=== PATIENT | male | born 1965 | race African-American/Black ===

== ENCOUNTER 2025-07-26 15:09 | Inpatient (IN) | payer OTHER ==
[~2025-07-26] VITALS: Ht 185.4 cm; Wt 94.6 kg
[2025-07-26 15:40] VITALS: BP 141/70
[2025-07-26] MEDS ORDERED: VISTARIL25 MG PO (15:46)
[2025-07-26] MEDS ORDERED: 'KLONOPIN0.5 MG PO (16:19)
[2025-07-26] MEDS ORDERED: NICODERM CQ1 EACH T (16:20)
[2025-07-26] MEDS ORDERED: OXYBUTYNIN5 MG PO (16:21)
[2025-07-26] MEDS ORDERED: OSTERA TABLET1 EACH PO (16:21)
[2025-07-26] MEDS ORDERED: COLACE100 MG PO (16:22)
[2025-07-26 16:24] LABS: BASO # 0.0 10*3/uL (0.0-0.1); BASO % 0.5 % (0.0-1.0); EOS # 0.2 10*3/uL (0.0-0.4); EOS % 3.0 % (1.0-4.0); MEAN CELL VOLUME 88.5 fl (80.0-94.0); MEAN CORPUSCULAR HGB 27.7 pg (27.0-31.0); MEAN PLATELET VOLUME 8.7 fl (9.6-12.3); MONO # 0.7 10*3/uL (0.1-1.0); MONO % 12.0 % (3.0-9.0); NEUT # 2.9 10*3/uL (2.3-7.9); NEUT % 47.9 % (47.0-73.0); NUCLEATED RED BLOOD CELL 0.0 % (0.0-0.0); NUCLEATED RED BLOOD CELL 0.0 10*3/uL (0.0-0.0); PLATELET COUNT AUTOMATED 432 10*3/uL (130-400); RED CELL DISTRI WIDTH 14.3 % (0-14.5)
[2025-07-26] MEDS ORDERED: NORVASC5 MG PO (16:38)
[2025-07-26] MEDS ORDERED: CARBAMAZEPINE200 M2 PO (16:38)
[2025-07-26] MEDS ORDERED: LINZESS290 MC1 PO (16:39)
[2025-07-26] MEDS ORDERED: MIRTAZAPINE15 M2 PO (16:39)
[2025-07-26] MEDS ORDERED: BUPROPION XL300 MG PO (16:41)
[2025-07-26 16:45] LABS: BUN 12 mg/dl (9-23)
[2025-07-26] MEDS ORDERED: MG-AL HYDROXIDE/SIMETICONE 30 ML UDC PO PRN (20:00)
[2025-07-26] MEDS ORDERED: ACETAMINOPHEN 325 MG TAB PO PRN (20:00)
[2025-07-26] MEDS ORDERED: Menthol/Zinc Oxide 4 GM THIN T PRN (20:15)
[2025-07-26] MEDS ORDERED: Ondansetron4 MG PO (20:21)
[2025-07-26] MEDS ORDERED: LORazepam 1 MG TAB PO PRN (20:30)
[2025-07-26] MEDS ORDERED: hydrOXYzine hydrochloride 50 MG/ML VIAL IM PRN (20:30)
[2025-07-26 20:57] VITALS: BP 146/75
[2025-07-27] MEDS ORDERED: Ondansetron Hydrochloride 4 MG TAB PO PRN (00:10)
[2025-07-27 06:47] LABS: BASO # 0.1 10*3/uL (0.0-0.1); BASO % 0.8 % (0.0-1.0); EOS # 0.2 10*3/uL (0.0-0.4); EOS % 2.8 % (1.0-4.0); MEAN CELL VOLUME 87.1 fl (80.0-94.0); MEAN CORPUSCULAR HGB 27.4 pg (27.0-31.0); MEAN PLATELET VOLUME 9.3 fl (9.6-12.3); MONO # 0.6 10*3/uL (0.1-1.0); MONO % 9.3 % (3.0-9.0); NEUT # 3.4 10*3/uL (2.3-7.9); NEUT % 56.5 % (47.0-73.0); NUCLEATED RED BLOOD CELL 0.0 % (0.0-0.0); NUCLEATED RED BLOOD CELL 0.0 10*3/uL (0.0-0.0); PLATELET COUNT AUTOMATED 424 10*3/uL (130-400); RED CELL DISTRI WIDTH 14.1 % (0-14.5)
[2025-07-27 07:41] LABS: BUN 13 mg/dl (9-23); LDL CHOLESTEROL 104 mg/dL (9-159); SGPT/ALT 16 U/L (5-49)
[2025-07-27 08:00] VITALS: BP 146/85
[2025-07-27] MEDS ORDERED: carBAMazepine 200 MG TAB PO SCH (09:00)
[2025-07-27 09:09] LABS: VITAMIN D, 25-HYDROXY 37.9 ng/mL (30-100)
[2025-07-27 09:19] LABS: BILIRUBIN Negative (Negative); BLOOD 1+ (Negative); CLARITY Cloudy (Clear); COLOR Yellow (Yellow); KETONE Negative (Negative); LEUKO ESTERASE 1+ (Negative); NITRITE Positive (Negative); PH 7.5 (4.5-8.0); SPECIFIC GRAVITY 1.020 (1.001-1.030); UROBILINOGEN 1.0 E.U./dl (0.0-1.0)
[2025-07-27] MEDS ORDERED: DOCUSATE SODIUM 100 MG CAP PO SCH (10:00)
[2025-07-27] MEDS ORDERED: LINACLOTIDE 145 MCG CAP PO SCH (10:00)
[2025-07-27 10:20] LABS: BACTERIA 2+; RBC 21-30 rbc/hpf (0-2); WBC 16-20 wbc/hpf (0-5)
[2025-07-27] MEDS ORDERED: CYANOCOBALAMIN 1,000 MCG/ML VIAL IM SCH (12:45)
[2025-07-27] MEDS ORDERED: CEFDINIR 300 MG CAP PO SCH (12:50)
[2025-07-27 20:00] VITALS: BP 151/73
[2025-07-28 08:00] VITALS: BP 146/87
[2025-07-28 20:00] VITALS: BP 146/87
[2025-07-29 08:00] VITALS: BP 134/85
[2025-07-29] MEDS ORDERED: Ondansetron Hydrochloride 4 MG TAB PO ONE (13:05)
[2025-07-29 20:00] VITALS: BP 112/70
[2025-07-30 08:00] VITALS: BP 140/80
[2025-07-30 20:00] VITALS: BP 136/62
[2025-07-31 08:00] VITALS: BP 125/82
[2025-07-31 20:00] VITALS: BP 122/82
[2025-08-01 08:00] VITALS: BP 139/77
[2025-08-01] MEDS ORDERED: Benzocaine/Menthol 1 LOZ LOZENGE PO PRN (15:45)
[2025-08-01 20:00] VITALS: BP 121/86
[2025-08-02 06:13] LABS: BASO # 0.1 10*3/uL (0.0-0.1); BASO % 0.5 % (0.0-1.0); EOS # 0.1 10*3/uL (0.0-0.4); EOS % 0.8 % (1.0-4.0); MEAN CELL VOLUME 86.6 fl (80.0-94.0); MEAN CORPUSCULAR HGB 28.2 pg (27.0-31.0); MEAN PLATELET VOLUME 9.3 fl (9.6-12.3); MONO # 1.1 10*3/uL (0.1-1.0); MONO % 9.0 % (3.0-9.0); NEUT # 8.5 10*3/uL (2.3-7.9); NEUT % 67.4 % (47.0-73.0); NUCLEATED RED BLOOD CELL 0.0 % (0.0-0.0); NUCLEATED RED BLOOD CELL 0.0 10*3/uL (0.0-0.0); PLATELET COUNT AUTOMATED 506 10*3/uL (130-400); RED CELL DISTRI WIDTH 14.1 % (0-14.5)
[2025-08-02 07:01] LABS: BUN 14 mg/dl (9-23); SGPT/ALT 26 U/L (5-49)
[2025-08-02 08:00] VITALS: BP 128/81
[2025-08-02] MEDS ORDERED: B121000 MCG/1 IM (09:28)
[2025-08-02] MEDS ORDERED: CLONAZEPAM1 MG PO (09:28)
[2025-08-02] MEDS ORDERED: BUPROPION HYDR150 M3 PO (09:28)
[2025-08-02] MEDS ORDERED: DULOXETINE HCL60 MG PO (09:28)
[2025-08-02] MEDS ORDERED: OMEPRAZOLE40 MG PO (10:28)
== END 2025-08-02 12:45 | DRG 885 ==
LOC: ED 15:09 → 3N 18:41
PROVIDERS: Nurse Practitioner; Nurse Practitioner Family; ADMIT Psychiatry & Neurology Psychiatry; ATTEND Psychiatry & Neurology Psychiatry
PROC: GZHZZZZ Group Psychotherapy (ICD-10-PCS; principal; 2025-07-27)
DX: F33.2 Major depressive disorder, recurrent severe without psychotic features (principal); E44.0 Moderate protein-calorie malnutrition; N30.00 Acute cystitis without hematuria; F41.1 Generalized anxiety disorder; D64.9 Anemia, unspecified; I10 Essential (primary) hypertension; R56.9 Unspecified convulsions; H54.7 Unspecified visual loss; N40.0 Benign prostatic hyperplasia without lower urinary tract symptoms; R00.1 Bradycardia, unspecified; Z88.0 Allergy status to penicillin; Z79.899 Other long term (current) drug therapy; Z82.49 Family history of ischemic heart disease and other diseases of the circulatory system; Z83.3 Family history of diabetes mellitus; Z68.27 Body mass index [BMI] 27.0-27.9, adult